=== PATIENT | male | born 1980 | race Caucasian/White ===

== ENCOUNTER 2018-01-04 14:38 | Emergency (ER) | payer OTHER ==
[~2018-01-04] VITALS: Ht 193 cm; Wt 75.0 kg
[2018-01-04 15:16] LABS: BASOPHILS # (AUTO) 0.02 x10^3/uL (0-0.1); BASOPHILS % (AUTO) 0 % (0-1); EOSINOPHILS # (AUTO) 0.29 x10^3/uL (0-0.4); EOSINOPHILS % (AUTO) 5 % (1-7); LYMPHOCYTES % (AUTO) 29 % (22-44); MD NO; MEAN CORPUSCULAR HEMOGLOBIN 30.4 pg (27.5-34.5); MEAN CORPUSCULAR HGB CONC 33.2 g/dL (33.2-36.2); MEAN CORPUSCULAR VOLUME 91.5 fL (81-97); MEAN PLATELET VOLUME 8.3 fL (7.4-10.4); MONOCYTES # (AUTO) 0.39 x10^3/uL (0.2-0.8); MONOCYTES % (AUTO) 7 % (2-9); NEUTROPHILS % (AUTO) 59 % (42-75); PLATELET COUNT 281 x10^3/uL (130-400); RED CELL DISTRIBUTION WIDTH 14.7 % (9.4-14.8)
[2018-01-04 15:28] LABS: ALANINE AMINOTRANSFERASE 20 U/L (12-78); ALBUMIN 3.6 g/dL (3.4-5.0); ANION GAP 5 mmol/L (5-15); CALCIUM 8.6 mg/dL (8.5-10.1); CHLORIDE 110 mmol/L (98-107)
[2018-01-04 15:29] LABS: ALKALINE PHOSPHATASE 56 U/L (45-117); BILIRUBIN,TOTAL 0.6 mg/dL (0.2-1.0); TOTAL PROTEIN 6.9 g/dL (6.4-8.2)
[2018-01-04] MEDS ORDERED: MAALOX/HYOSCYAMINE/LIDOCAINE 45 ML BTL ONE (15:37)
[2018-01-04] MEDS ORDERED: MAALOX/HYOSCYAMINE/LIDOCAINE 45 ML BTL PO ONE (16:00)
[2018-01-04 16:46] VITALS: BP 108/76
== END 2018-01-04 16:49 | disposition home or self-care (01) ==
LOC: ED 16:20
DX: K29.00 Acute gastritis without bleeding (principal); K31.84 Gastroparesis
CPT/HCPCS: 36415; 80053; 83690; 85025; 86677; 99284

== ENCOUNTER 2018-03-27 07:54 | Emergency (ER) | payer OTHER ==
[~2018-03-27] VITALS: Ht 193 cm; Wt 76.8 kg
[2018-03-27 07:58] VITALS: BP 125/86
[2018-03-27 08:19] LABS: MICROSCOPIC NOT IND
[2018-03-27 08:21] LABS: CULTURE INDICATED? NO
[2018-03-27] MEDS ORDERED: KETOROLAC 30 MG/1 ML ONE (08:29)
[2018-03-27] MEDS ORDERED: CYCLOBENZAPRINE 10 MG TABLET ONE (08:29)
[2018-03-27] MEDS ORDERED: KETOROLAC 30 MG/1 ML IM ONE (08:30)
[2018-03-27] MEDS ORDERED: CYCLOBENZAPRINE 10 MG TABLET PO ONE (08:30)
== END 2018-03-27 09:09 | disposition home or self-care (01) ==
LOC: ED 08:53
DX: S39.012A Strain of muscle, fascia and tendon of lower back, initial encounter (principal); R30.0 Dysuria; R68.83 Chills (without fever); X58.XXXA Exposure to other specified factors, initial encounter; Y93.89 Activity, other specified; Y92.89 Other specified places as the place of occurrence of the external cause; Y99.8 Other external cause status
CPT/HCPCS: 81003; 96372; 99283; J1885

== ENCOUNTER 2021-03-30 07:49 | Emergency (ER) | payer OTHER ==
[~2021-03-30] VITALS: Ht 193 cm; Wt 85.8 kg
--- NOTE | 2021-03-30 08:24 | NUR ---
PT C/O BLOODY DIARRHEA TIMES 2 WEEKS. PT STATES HE WAS WAITING FOR THE BLEEDING TO GET BETTER SINCE HE HAS A HX OF ULCERS AND HE ATTRIBUTED THE BLEEDING TO THE ULCERS. PT DESCRIBES THE BLEEDING DARK, BUT HAS ALSO HAD PERIODS OF BRIGHT RED BLOOD IN THE STOOL. PT N/V, DIZZINESS, FEVERS, AND WEAKNESS STARTED LAST MONDAY. PT DENIES LOC OR FALLS. PT'S LAST ORAL INTAKE WAS HALF A CUP OF COFFEE THIS AM. PT DENIES DYSURIA, CP, OR SOB.
[2021-03-30] MEDS ORDERED: SODIUM CHLORIDE 0.9% 1,000ML IVBOLUS ONE (09:30)
[2021-03-30] MEDS ORDERED: MAALOX/HYOSCYAMINE/LIDOCAINE 45 ML BTL PO ONE (09:30)
[2021-03-30] MEDS ORDERED: SODIUM CHLORIDE FLUSH 10ML SYR IVF ONE (09:30)
[2021-03-30] MEDS ORDERED: MAALOX/HYOSCYAMINE/LIDOCAINE 45 ML BTL ONE (09:34)
[2021-03-30 09:44] LABS: MEAN CORPUSCULAR HEMOGLOBIN 31.4 pg (27.5-34.5); MEAN PLATELET VOLUME 9.2 fL (7.4-10.4); PLATELET COUNT 222 x10^3/uL (130-400); RED BLOOD COUNT 5.18 x10^6/uL (4.38-5.82); RED CELL DISTRIBUTION WIDTH 14.3 % (9.4-14.8)
[2021-03-30 09:54] LABS: ALBUMIN 3.8 g/dL (3.4-5.0); ANION GAP 6 mmol/L (5-15); CALCIUM 9.2 mg/dL (8.5-10.1); CHLORIDE 107 mmol/L (98-107)
[2021-03-30 09:58] LABS: ALANINE AMINOTRANSFERASE 22 U/L (12-78); ALKALINE PHOSPHATASE 66 U/L (45-117); BILIRUBIN,TOTAL 0.7 mg/dL (0.2-1.0); CREATININE 0.98 mg/dL (0.7-1.3); TOTAL PROTEIN 7.8 g/dL (6.4-8.2)
[2021-03-30 10:43] LABS: MICROSCOPIC NOT IND
[2021-03-30 11:22] LABS: BAND#(MANUAL) 0.28 x10^3/uL; BANDS%(MANUAL) 10 % (0-7); EOS#(MANUAL) 0.03 x10^3/uL (0.0-0.4); EOS% (MANUAL) 1 % (1-7); LYMPH#(MANUAL) 0.64 x10^3/uL (1-3.4); LYMPHS% (MANUAL) 23 % (22-44); MONOS#(MANUAL) 0.64 x10^3/uL (0.3-2.7); MONOS% (MANUAL) 23 % (2-9); SEGS% (MANUAL) 43 % (42-75)
[2021-03-30 11:23] LABS: <PLATELET ESTIMATE> ADEQUATE; <PLT MORPHOLOGY> NORMAL PLT MORPH; <RBC MORPHOLOGY> NORMAL
[2021-03-30 12:40] VITALS: BP 115/74
--- NOTE | 2021-03-30 12:41 | NUR ---
PT REC'VD DISCHARGE INSTRUCTIONS AND EDUCATION. PT HAD NO FURTHER QUESTIONS. PT AMBULATED TO DC AREA, STEADY GAIT.
== END 2021-03-30 12:51 | disposition home or self-care (01) ==
LOC: ED 10:50
DX: R10.11 Right upper quadrant pain (principal); R10.13 Epigastric pain; K62.5 Hemorrhage of anus and rectum; R19.7 Diarrhea, unspecified; R11.2 Nausea with vomiting, unspecified
CPT/HCPCS: 36415; 76700; 76857; 80053; 81003; 83690; 85025; 96360; 99285; J7030